=== PATIENT | female | born 1955 | race Caucasian/White ===

== ENCOUNTER → 2016-09-30 | Day surgery (SDC) | payer OTHER ==
[~2016-09-30] MED LIST: BUPIVACAINE HCL PF 0.25% 30 ML VIAL ONE; BUPIVACAINE HCL PF 0.5% 30 ML VIAL ONE; BUPIVACAINE HCL PF 0.75% 30 ML VIAL ONE; CALC500T37 PO; CETI1TAB53 PO; ESTR.625 PO; FIBE625T10 PO; FLUT1SPR14 NASAL; GEMF600T PO; LACTATED RINGER'S 1000 ML INJ 1,000 ML ONE; LEVO25TA39 PO; LIDOCAINE 1.5%/EPINEPHrine 1:200,000 PF SOLN 30 ML AMP ONE; MAGN250T11 PO; MEPE50TA PO; MIDAZOLAM HCL 5 MG/ML VIAL (1 ML) ONE; ONDANSETRON HCL 4 MG/2 ML VIAL IV PUSH ONE; PROPOFOL 200 MG/20 ML AMP IV ONE; ZYRTEC D PO; ceFAZolin 2 GM PREMIX 50 ML ONE
--- NOTE | 2016-09-30 23:22 | MP ---
cc: JONATHON EDGE DP DATE OF SURGERY: 09/30/2016 PREOPERATIVE DIAGNOSIS: Right foot hallux abductovalgus with hypermobile first ray. POSTOPERATIVE DIAGNOSIS Right foot hallux abductovalgus with hypermobile first ray. PROCEDURES PERFORMED Right modified Lapidus bunionectomy with anastomosis of first second metatarsal cuneiform Lisfranc's joint fusion. ESTIMATED BLOOD LOSS Less than 30 mL COMPLICATIONS None. ANESTHESIA General The patient received a popliteal block and a saphenous block before proceeding to the operative suite per anesthesia. TOURNIQUET TIME: 63 minutes at a setting of 215 mmHg. PLAN OF ACTIVITY: PACU and then DC home once stable per Same-Day Surgery criteria. JUSTIFICATION FOR PROCEDURE: This is a pleasant 61-year-old female who has worsening hallux abductovalgus and extremely hypermobile first ray. We devised a plan to move forward with surgical correction of the bunion to improve biomechanics of the foot and longevity of exercise and wearing shoe potential. The patient was educated on the risks and benefits of surgery including but not limited to stiffness, numbness, burning, tingling, need for more surgery at a later date to remove hardware, possible recurrence of pain and deformity. No guarantees were given or implied regarding the outcome. PROCEDURE IN DETAIL Under mild sedation the patient was brought to the operating room, placed on the operating table in the supine position. Following the induction of general anesthesia the patient's right lower extremity was scrubbed, prepped and draped in the usual aseptic fashion. The foot was elevated, exsanguinated and the previously placed mid calf tourniquet inflated to 215 mmHg. An incision was made over the dorsal aspect of the first MPJ which was slight medial. It became central to central lateral at the level of the first metatarsal medial cuneiform joint. Sharp and blunt dissection was carried down deep to the neurovascular structures. An L-shaped capsulotomy was performed revealing a prominent dorsomedial eminence with dorsal arthritic findings down to subchondral bone. Next the extensor hallucis longus tendon was retracted medially and sharp and blunt dissection was carried down to the lateral aspect of the first MPJ. An L-shaped capsulorrhaphy was performed releasing lateral contractures as well as the fibular suspensory ligament allowing for relocation of the sesamoidal apparatus. Next the McGlamry elevator was introduced deep into the first MPJ freeing up any remaining plantar and lateral adhesions. The dorsal medial eminence was then transected utilizing power instrumentation being careful to maintain the sagittal groove. Sharp and blunt dissection was carried down to the base of the first metatarsal medial cuneiform joint in which a biplanar wedge was performed of the base of the first metatarsal head of the medial cuneiform allowing for reduction of the first, second intermetatarsal angle. The wound was flushed with copious amounts of normal saline. Proper AO technique was used. A screw was then placed from dorsal distal medial to plantar proximal medial and another screw was then placed from dorsal proximal lateral to plantar distal lateral. There was noted to be slight hypermobility noted at this time. We decided to place a screw from the base of the first metatarsal cuneiform joint to the base of the second metatarsal cuneiform joint. The area of concern was prepared of the periosteal surface of the medial aspect of the second metatarsal and the lateral aspect of the first metatarsal to allow for ingrowth of the synostosis. A screw was then placed utilizing fluoroscopy. This further aided in reduction of the first, second intermetatarsal angle and now stability was noted. The wound was flushed with copious amounts of normal saline. Proximal tissue was closed utilizing Vicryl at the periosteal surface. The distal redundant capsule was then transected and repaired utilizing Vicryl. Skin was closed utilizing nylon. Upon relieving the tourniquet there was a prompt hyperemic response to all digits without any delayed capillary fill time. A bulky bandage placed. The patient was then positioned within a controlled ankle motion boot. She is heel transfer weightbear only. She recovered nicely in the post anesthesia care unit. AGUILAR Bruno /1:53 PM /11:12 PM
== END | disposition home or self-care (01) ==
LOC: ESDC 09:57
PROVIDERS: ATTEND Podiatrist Foot & Ankle Surgery
DX: M20.11 Hallux valgus (acquired), right foot (principal)
CPT/HCPCS: 01480; 28297; 64450; 73620; 76000; C1713; J0690; J2250; J2405; J7120

== ENCOUNTER 2016-10-02 11:41 | Emergency (ER) | payer OTHER ==
[~2016-10-02] VITALS: Ht 177.8 cm; Wt 82.0 kg
[2016-10-02 11:45] VITALS: BP 87/58; PULSE 83; RESP 16; TEMP 98; O2SAT 97
[2016-10-02 12:15] VITALS: BP 103/51; PULSE 81; RESP 16; O2SAT 97
[2016-10-02] MEDS ORDERED: FLUT1SPR14 NASAL (12:17)
[2016-10-02] MEDS ORDERED: GEMF600T PO (12:17)
[2016-10-02] MEDS ORDERED: LEVO25TA39 PO (12:17)
[2016-10-02] MEDS ORDERED: ESTR.625 PO (12:17)
[2016-10-02] MEDS ORDERED: MAGN250T11 PO (12:17)
[2016-10-02] MEDS ORDERED: ZYRTEC D PO (12:17)
[2016-10-02] MEDS ORDERED: MEPE50TA PO (12:19)
[2016-10-02] MEDS ORDERED: FIBE625T10 PO (12:21)
[2016-10-02] MEDS ORDERED: CALC500T37 PO (12:21)
[2016-10-02 12:25] VITALS: RESP 16; O2SAT 97
--- NOTE | 2016-10-02 12:29 | PD ---
HPI Chief Complaint: Syncope/Near-Syncope Time Seen by Provider: 12:12 Travel History International Travel<30 days: No Contact w/Intl Traveler<30days: No Traveled to known affect area: No History of Present Illness HPI 60-year-old female was brought in by her for syncope. Patient status post right foot bunionectomy 2 days ago. Patient was given prescription for Keflex and hydrocodone after surgery. Patient started having itching rash yesterday after taking the medications. Patient states that she took hydrocodone in the past without any problem. Patient was seen by podiatry yesterday. Patient was advised to stop Keflex and hydrocodone yesterday and given prescription for meperidine for pain. Patient also advised to take Benadryl for itching rash. Patient went to the bathroom this morning and had a syncopal episode in the bathroom. Patient did not injure herself during the episode. Patient's was there to support her. Patient states that she has lightheadedness now. Patient denies any headache. Patient denies any visual change. Patient denies any neck pain. Patient denies any chest pain or shortness of breath. Patient denies abdominal pain. Patient denies any nausea vomiting diarrhea. Patient complained of sharp pain localized to the right foot. Patient denies any focal weakness or numbness of the extremity. PFSH Past Medical History High Cholesterol: Yes Thyroid Disease: Yes Tetanus Vaccination: Unknown Influenza Vaccination: No ?: Not Menopausal: Yes Tubal Ligation: Yes Past Surgical History Oral Surgery: Yes (wisdom teeth) Other Surgery: Yes (bunion surgery right foot) Social History Alcohol Use: No Tobacco Use: No Substance Use: No Allergies-Medications (Allergen,Severity, Reaction): Coded Allergies: Methylprednisolone (Verified Allergy, Severe, RASH AND FLUSHNESS, 10/02/16) Mobic (Verified Allergy, Severe, JOINT PAIN, 10/02/16) Tramadol (Verified Allergy, Severe, HIVES, 10/02/16) Hydrocodone (Verified Allergy, Intermediate, flushed face, 10/02/16) Keflex (Verified Allergy, Intermediate, flushed face, 10/02/16) Augmentin (Verified Adverse Reaction, Severe, STOMACH CRAMPING, 10/02/16) Reported Meds & Prescriptions Reported Meds & Active Scripts Active Reported Calcium Ascorbate 500 Mg Tab 600 Mg PO DAILY Fiber (Calcium Polycarbophil) Unknown Strength Tab Unknown Dose PO BID PRN Meperidine (Meperidine HCl) 50 Mg Tab 50 Mg PO Q4HR PRN Kls Aller-Ole (Fluticasone Propionate (Nasal)) 50 Mcg/Act Spr 1-2 [place] NASAL DAILY Levoxyl (Levothyroxine Sodium) 25 Mcg Tab 25 Mcg PO DAILY Gemfibrozil 600 Mg Tab 600 Mg PO BIDAC Take 30 minutes prior to breakfast and dinner. [zyrtec D] 1 Tab PO DAILY Premarin (Estrogens Conjugated) 0.625 Mg Tab 0.625 Mg PO DAILY Magnesium Oxide 250 Mg Tab 250 Mg PO DAILY Review of Systems General / Constitutional: No: Fever Eyes: No: Visual changes HENT: Positive: Lightheadedness, No: Headaches Cardiovascular: No: Chest Pain or Discomfort Respiratory: No: Shortness of Breath Gastrointestinal: No: Abdominal Pain Genitourinary: No: Dysuria Musculoskeletal: No: Pain Skin: No Rash Neurologic: No: Weakness Psychiatric: No: Depression Endocrine: No: Polydipsia Hematologic/Lymphatic: No: Easy Bruising Physical Exam Narrative GENERAL: Well-nourished, well-developed patient. SKIN: Focused skin assessment warm/dry. HEAD: Normocephalic. EYES: No scleral icterus. No injection or drainage. NECK: Supple, trachea midline. No JVD or lymphadenopathy. CARDIOVASCULAR: Regular rate and rhythm without murmurs, gallops, or rubs. RESPIRATORY: Breath sounds equal bilaterally. No accessory muscle use. GASTROINTESTINAL: Abdomen soft, non-tender, nondistended. MUSCULOSKELETAL: No cyanosis, or edema. Patient has Walking boot on the right leg. BACK: Nontender without obvious deformity. No CVA tenderness. Neurologic exam: Patient's awake alert oriented 3. No obvious focal neurological deficit. Data Data Last Documented VS Vital Signs Date Time Temp Pulse Resp B/P Pulse Ox O2 Delivery O2 Flow Rate FiO2 10/02/16 13:13 16 10/02/16 13:12 61 109/54 97 Room Air 10/02/16 11:45 98.0 Orders Sodium Chlor 0.9% 1000 Ml Inj (Ns 1000 M (10/02/16 12:30) Ketorolac Inj (Toradol Inj) (10/02/16 12:30) Morphine Inj (Morphine Inj) (10/02/16 12:30) Complete Blood Count With Diff (10/02/16 12:23) Basic Metabolic Panel (Bmp) (10/02/16 12:23) Iv Access Insert/Monitor (10/02/16 12:23) Ecg Monitoring (10/02/16 12:23) Oximetry (10/02/16 12:23) Labs Laboratory Tests Test 10/02/16 12:40 White Blood Count 10.0 TH/MM3 Red Blood Count 4.04 MIL/MM3 Hemoglobin 12.7 GM/DL Hematocrit 36.6 % Mean Corpuscular Volume 90.6 FL Mean Corpuscular Hemoglobin 31.4 PG Mean Corpuscular Hemoglobin 34.7 % Concent Red Cell Distribution Width 13.0 % Platelet Count 303 TH/MM3 Mean Platelet Volume 7.9 FL Neutrophils (%) (Auto) 75.0 % Lymphocytes (%) (Auto) 15.1 % Monocytes (%) (Auto) 8.8 % Eosinophils (%) (Auto) 0.4 % Basophils (%) (Auto) 0.7 % Neutrophils # (Auto) 7.5 TH/MM3 Lymphocytes # (Auto) 1.5 TH/MM3 Monocytes # (Auto) 0.9 TH/MM3 Eosinophils # (Auto) 0.0 TH/MM3 Basophils # (Auto) 0.1 TH/MM3 CBC Comment DIFF FINAL Differential Comment Sodium Level 143 MEQ/L Potassium Level 4.0 MEQ/L Chloride Level 105 MEQ/L Carbon Dioxide Level 34.0 MEQ/L Anion Gap 4 MEQ/L Blood Urea Nitrogen 13 MG/DL Creatinine 0.93 MG/DL Estimat Glomerular Filtration 61 ML/MIN Rate Random Glucose 81 MG/DL Calcium Level 9.2 MG/DL [facility] Medical Decision Making Medical Screen Exam Complete: Yes Emergency Medical Condition: Yes Interpretation(s) 1333 PM. CBC within normal limit. BMP within normal limit. Bicarbonate 34. Differential Diagnosis Differential diagnosis including vasovagal reaction, side effect to medication, dehydration, electrolyte imbalance, TIA, CVA. Narrative Course 60-year-old female with syncope. Patient is on pain medication Meperidine and Benadryl. Normal saline solution 1 L IV bolus. Morphine 2 mg IV. Zofran 4 mg IV. Toradol 30 mg IV. Patient's feeling better. I spoke with Dr. Perera, her internal consultant. Agreed with the plan. Diagnosis Primary Impression: Syncope Qualified Code: R55 - Syncope, unspecified syncope type Additional Impression: Medication side effect Qualified Code: T88.7XXA - Medication side effect, initial encounter Patient Instructions: General Instructions Additional Instructions: Stop meperidine. Take Lortab as directed. Follow-up with personal physician. Return if worse. Encouraged by mouth fluid. Med/Other Pt SpecificInfo: Med Stopped Disposition: 01 DISCHARGE HOME Condition: Stable Tam Luna MD Oct 02, 2016 12:29
[2016-10-02] MEDS ORDERED: SODIUM CHLOR 0.9% 1000 ML INJ 1,000 ML IV ONE (12:30)
[2016-10-02] MEDS ORDERED: MORPHINE SULFATE 4 MG/ML INJ IV PUSH ONE (12:30)
[2016-10-02] MEDS ORDERED: KETOROLAC TROMETHAMINE 30 MG/ML (IVP) VIAL IV PUSH ONE (12:30)
[2016-10-02 12:46] LABS: AUTOMATED NEUTROPHIL # 7.5 TH/MM3 (1.8-7.7); BASOPHIL # 0.1 TH/MM3 (0-0.2); BASOPHIL % 0.7 % (0.0-2.0); EOSINOPHIL % 0.4 % (0.0-4.0); HEMATOCRIT 36.6 % (35.0-46.0); HEMO FLAGS DIFF FINAL; LYMPH % 15.1 % (9.0-44.0); LYMPHOCYTE # 1.5 TH/MM3 (1.0-4.8); MEAN CELL VOLUME 90.6 FL (80.0-100.0); MEAN CORPUSCULAR HEMOGLOBIN 31.4 PG (27.0-34.0); MEAN CORPUSCULAR HGB CONC 34.7 % (32.0-36.0); MONO % 8.8 % (0.0-8.0); PLATELET COUNT 303 TH/MM3 (150-450); RED BLOOD COUNT 4.04 MIL/MM3 (4.00-5.30)
[2016-10-02 13:12] VITALS: BP 109/54; PULSE 61; RESP 16; O2SAT 97
[2016-10-02 13:36] VITALS: RESP 16
[2016-10-02 14:16] VITALS: BP 103/64
[2016-10-04] MEDS ORDERED: CETI1TAB53 PO (00:37)
== END 2016-10-02 14:18 | disposition home or self-care (01) ==
LOC: PHED 11:41
DX: R55 Syncope and collapse (principal); Z88.0 Allergy status to penicillin; E78.00 Pure hypercholesterolemia, unspecified; E07.9 Disorder of thyroid, unspecified
CPT/HCPCS: 80048; 85025; 96361; 96374; 96375; 99284; J1885; J2270; J7030